=== PATIENT | female | born 1955 | race Caucasian/White ===

== ENCOUNTER 2019-09-23 10:54 | Emergency (ER) | payer MEDICARE, SELFPAY ==
[2019-09-23 11:33] VITALS: BP 163/118; PULSE 79; RESP 20; O2SAT 96; BMI 37.0
== END 2019-09-23 14:00 | disposition left against medical advice (07) ==
LOC: ER 14:12
PROVIDERS: Emergency Provider Emergency Medicine; Family Provider Family Medicine
DX: M54.6 Pain in thoracic spine (principal); R07.9 Chest pain, unspecified; F17.200 Nicotine dependence, unspecified, uncomplicated; Z53.21 Procedure and treatment not carried out due to patient leaving prior to being seen by health care provider
CPT/HCPCS: 99281

== ENCOUNTER 2020-06-29 09:58 | Inpatient (IN) | payer MEDICARE, SELFPAY ==
[2020-06-29] VITALS (9 sets, daily range): BP systolic 111–160; BP diastolic 65–82; PULSE 62–78; RESP 16–20; TEMP 36.7–37.2; O2SAT 90–98; BMI 34.5
--- NOTE | 2020-06-29 11:07 | CT_ITS ---
WS: [id number] CT ABDOMEN PELVIS TECHNIQUE: Contrast-enhanced CT of the abdomen and pelvis with coronal and sagittal reformatted image s. CLINICAL INFORMATION: abd pain COMPARISON: [id number] DLP: 1096.[address] scans at [facility] use at least one of these dose optimization techniques: automat ed exposure control; mA and/or kV adjustment per patient size (includes targeted exams where dose is matched to clinical indication); or iterative reconstruction. FINDINGS: Prior postoperative changes sigmoid resection with anastomosis. Colon is normal in appearance. Filled small bowel loops in the midabdomen consistent with small bowel obstruction. Dilated small bow el loops measure up to 3.5 CM. Dilated fluid-filled small bowel loops extend into the pelvis. Termina l ileum appears decompressed. No definite transition points. Normal liver. Prior cholecystectomy. Normal GE junction. Subsegmental atelectasis in the lung bases. Normal spleen. Normal pancreas. Adrenal glands are normal. No hydronephrosis. Normal caliber abdomina l aorta. Aortic calcification. No periaortic or retroperitoneal lymphadenopathy. No pelvic or inguinal lymphadenopathy. CT/CT abdomen pelvis w con* [id number] IMPRESSION: 1. Evidence of partial small bowel obstruction with dilated fluid-filled loops of small bowel in the midabdomen extending into the pelvis. No definite focal transition point. 2. Distal ileum and colon are normal caliber. 3. No free air. 4. Prior cholecystectomy. 5. No other significant findings. Notified Peter Mcgrath DO at 06/29/2020 12:09 PM.
--- NOTE | 2020-06-29 11:15 | ED_ITS ---
HPI - Abdominal Pain General: Chief Complaint: Abdominal Pain Stated Complaint: Stomach Pain Time Seen by Provider: 06/29/20 10:16 History of Present Illness: HPI narrative: 65-year-old female presents complaints of abdominal pain that she localized to the epigastric area and supraumbilical area began overnight. She has tried Mylanta Pepto-Bismol with only transient minimal relief. She has nausea but no vomiting or diarrhea she has had some loose stools denies any medic easy melena hematemesis or coffee- ground emesis denies any dysuria urgency or frequency. She is not noted any fever. Seemed to begin last night after she ate some vegetables and pork chops. MD elicited complaint: abdominal pain Pertinent past history: diverticulitis Onset (ago): hour(s) Pain Consistency: constant Location: Epigastric and Periumbilical Severity: moderate Quality: cramping Radiation: none Migration to: no migration Exacerbating factors: eating Relieving factors: nothing Associated Symptoms: Reports loose stools and poor appetite; Denies anorexia, belching, bloating, change in bowel habits, change in stool character, chills, coffee ground emesis, constipation, GI cramping, diarrhea, dyspepsia, dysuria, excessive flatus, fever(s), heartburn, hematochezia, hematuria, hematemesis, fecal incontinence, melena, nausea, syncope and vomiting Review of Systems Const: Denies: fever(s) or chills Card: Denies: syncope GI: Denies: nausea, vomiting, hematemesis, coffee ground emesis, heartburn, diarrhea, constipation, bloating, GI cramping, belching, excessive flatus, fecal incontinence, change in bowel habits, change in stool character, hematochezia or melena : Denies: dysuria or hematuria PFS ED PFSH: Medical History (Updated 06/29/20 @ 12:56 by Peter Mcgrath DO) COPD (chronic obstructive pulmonary disease) Diverticulitis Hyperlipidemia Hypertension Surgical History (Updated 06/29/20 @ 11:20 by Peter Mcgrath DO) H/O foot surgery H/O: hysterectomy S/P cholecystectomy S/P colon resection Social History (Updated 06/29/20 @ 11:20 by Peter Mcgrath DO) Smoking and tobacco status: current every day smoker Alcohol intake: never Physical Exam Const: COMMON NORMALS: no acute distress GENERAL APPEARANCE: cooperative and comfortable ORIENTATION/CONSCIOUSNESS: Yes awake, Yes oriented to person, Yes oriented to place and Yes oriented to time HENMT: COMMON NORMALS: normocephalic, atraumatic and hearing grossly normal bilaterally HEAD & SCALP: normocephalic and atraumatic Neck/C-Spine: COMMON NORMALS: no JVD Resp: COMMON NORMALS: normal respiratory effort, No retractions, No use of accessory muscles and clear to auscultation bilaterally AUSCULTATION: clear to auscultation bilaterally Cardio: COMMON NORMALS: no JVD, regular rate, regular rhythm and No murmurs present (Cardio) RATE: regular rate RHYTHM: regular rhythm GI: COMMON NORMALS: Soft to palpation and No hepatosplenomegaly present AUSCULTATION: Yes normoactive bowel sounds PALPATION: Yes Soft to palpation, No Tenderness to palpation present (GI), No Guarding due to palpation present (GI) and Yes No hepatosplenomegaly present Extremity: COMMON NORMALS: normal to inspection, capillary refill normal, no clubbing, cyanosis or edema, no calf tenderness and no pedal edema Neuro: SENSORIUM/ORIENTATION: Yes oriented to person, Yes oriented to place and Yes oriented to time Skin: COMMON NORMALS: no rashes or lesions noted GENERAL SKIN EXAM: no rashes or lesions noted Course Vital Signs: Vital signs: Vital Signs Temperature 98.1 F 06/29/20 10:06 Respiratory Rate 16 06/29/20 10:06 Blood Pressure 150/81 06/29/20 10:06 Pulse Oximetry 96 06/29/20 10:06 MDM - Abdominal Pain MDM Narrative: Medical decision making narrative: Partial small bowel obstruction. Patient will be admitted n.p.o. IV fluids Dr. Sutherland to admit as attending hospitalist for consultation for medical management. Discussed with patient. Lab Data: Labs: Lab Results 06/29/20 06/29/20 06/29/20 Range/Units 11:06 11:06 11:06 WBC 12.0 H (4.0-10.0) 10^3/ uL RBC 4.77 (4.1-5.3) 10^6/u L Hgb 15.1 (11.5-15.3) g/dL Hct 46.2 (37.0-47.0) % MCV 96.9 (81-99) fL MCH 31.7 (28.0-34.0) pg MCHC 32.7 (30.0-36.0) g/dL RDW 13.7 (12.1-15.1) % Plt Count 236 (130-400) 10^3/c mm MPV 10.0 (7.4-10.4) fL Neut % (Auto) 84.2 % Lymph % (Auto) 11.2 % [place] % (Auto) 3.9 % Eos % (Auto) 0.1 % Baso % (Auto) 0.2 % Neut # (Auto) 10.14 H (1.8-7.7) 10^3/u L Lymph # (Auto) 1.4 (0.8-4.8) 10^3/u L [place] # (Auto) 0.5 (0.2-0.9) 10^3/u L Eos # (Auto) 0.0 (0.0-0.8) 10^3/u L Baso # (Auto) 0.0 (0.0-0.1) 10^3/u L Nucleated RBC % (a uto) 0 % Nucleated RBCs # 0.0 /100WBC Sodium 137 (136-145) mmol/L Potassium 4.2 (3.5-5.1) mmol/L Chloride 100 (98-107) mmol/L Carbon Dioxide 23 (22-29) mmol/L Anion Gap 18.2 (5-19) BUN 20 (8-23) mg/dL Creatinine 0.7 (0.5-0.9) mg/dL GFR Calculation 84.2 L (90-130) mL/min Glucose 151 H (65-115) mg/dL Calculated Osmolal ity 290 (285-295) mOsm/k g Lactic Acid 2.8 H (0.5-2.2) mmol/L Calcium 9.4 (8.5-10.5) mg/dL Total Bilirubin 0.2 (0.15-1.2) mg/dL AST 15 (0-32) U/L ALT 12 (0-33) U/L Alkaline Phosphata se 81 (35-105) IU/L Total Protein 6.9 (6.6-8.7) g/dL Albumin 4.4 (3.5-5.2) g/dL Globulin 2.5 (1.3-4.6) g/dL Lipase 20 (13-60) U/L Urine Color (Yellow) Urine Appearance (CLEAR) Urine pH (5-7) Ur Specific Gravit y (1.005-1.030) Urine Protein (Negative) Urine Glucose (UA) (Normal) Urine Ketones (Negative) Urine Blood (Negative) Urine Nitrate (Negative) Urine Bilirubin (Negative) Urine Urobilinogen (Negative) mg/dL Ur Leukocyte Melissa ase (Negative) Urine RBC (0-2) /hpf Urine WBC (0-5) /hpf Ur Squamous Epith Cells (0-5) /hpf Amorphous Sediment Urine Bacteria (NONE) /hpf Urine Mucus /hpf 06/29/20 Range/Units 11:06 WBC (4.0-10.0) 10^3/ uL RBC (4.1-5.3) 10^6/u L Hgb (11.5-15.3) g/dL Hct (37.0-47.0) % MCV (81-99) fL MCH (28.0-34.0) pg MCHC (30.0-36.0) g/dL RDW (12.1-15.1) % Plt Count (130-400) 10^3/c mm MPV (7.4-10.4) fL Neut % (Auto) % Lymph % (Auto) % [place] % (Auto) % Eos % (Auto) % Baso % (Auto) % Neut # (Auto) (1.8-7.7) 10^3/u L Lymph # (Auto) (0.8-4.8) 10^3/u L [place] # (Auto) (0.2-0.9) 10^3/u L Eos # (Auto) (0.0-0.8) 10^3/u L Baso # (Auto) (0.0-0.1) 10^3/u L Nucleated RBC % (a uto) % Nucleated RBCs # /100WBC Sodium (136-145) mmol/L Potassium (3.5-5.1) mmol/L Chloride (98-107) mmol/L Carbon Dioxide (22-29) mmol/L Anion Gap (5-19) BUN (8-23) mg/dL Creatinine (0.5-0.9) mg/dL GFR Calculation (90-130) mL/min Glucose (65-115) mg/dL Calculated Osmolal ity (285-295) mOsm/k g Lactic Acid (0.5-2.2) mmol/L Calcium (8.5-10.5) mg/dL Total Bilirubin (0.15-1.2) mg/dL AST (0-32) U/L ALT (0-33) U/L Alkaline Phosphata se (35-105) IU/L Total Protein (6.6-8.7) g/dL Albumin (3.5-5.2) g/dL Globulin (1.3-4.6) g/dL Lipase (13-60) U/L Urine Color Yellow (Yellow) Urine Appearance Clear (CLEAR) Urine pH 5 (5-7) Ur Specific Gravit y 1.025 (1.005-1.030) Urine Protein Neg (Negative) Urine Glucose (UA) Norm (Normal) Urine Ketones Negative (Negative) Urine Blood 2+ H (Negative) Urine Nitrate Negative (Negative) Urine Bilirubin 1+ H (Negative) Urine Urobilinogen 1 H (Negative) mg/dL Ur Leukocyte Melissa ase Negative (Negative) Urine RBC 0-4 H (0-2) /hpf Urine WBC None (0-5) /hpf Ur Squamous Epith Cells Rare (0-5) /hpf Amorphous Sediment Not Reportable Urine Bacteria Trace (NONE) /hpf Urine Mucus 1+ /hpf Discharge Plan Discharge Patient Disposition: Admitted As Inpatient Clinical Impression: Small bowel obstruction, COPD (chronic obstructive pulmonary disease), Hypertension, Hyperlipidemia Condition: Stable Coding Level of Care Code ED Apprentice Carpenter for Maur[facility] Fwd Exam Comprehensive
[2020-06-29 11:23] LABS: Basophils % 0.2 %; Eosinophils % 0.1 %; Hematocrit 46.2 % (37.0-47.0); Hemoglobin 15.1 g/dL (11.5-15.3); Lymphocytes # 1.4 10^3/uL (0.8-4.8); Lymphocytes % 11.2 %; Mean Corpuscular HGB Conc 32.7 g/dL (30.0-36.0); Mean Corpuscular Hemoglobin 31.7 pg (28.0-34.0); Mean Corpuscular Volume 96.9 fL (81-99); Monocytes # 0.5 10^3/uL (0.2-0.9); Monocytes % 3.9 %; Neutrophils # 10.14 10^3/uL (1.8-7.7); Neutrophils % 84.2 %; Nucleated Red Blood Cells % 0 %; Platelet Count 236 10^3/cmm (130-400); Red Blood Count 4.77 10^6/uL (4.1-5.3); Red Cell Distribution Width 13.7 % (12.1-15.1)
[2020-06-29 11:40] LABS: Alanine Aminotransferase 12 U/L (0-33); Albumin Level 4.4 g/dL (3.5-5.2); Alkaline Phosphatase 81 IU/L (35-105); Anion Gap 18.2 (5-19); Aspartate Amino Transferase 15 U/L (0-32); Blood Urea Nitrogen 20 mg/dL (8-23); Calcium 9.4 mg/dL (8.5-10.5); Carbon Dioxide 23 mmol/L (22-29); Chloride 100 mmol/L (98-107); Globulin 2.5 g/dL (1.3-4.6); Glomerular Filtration Rate 84.2 mL/min (90-130); Glucose 151 mg/dL (65-115); Lipase 20 U/L (13-60); Osmolality Calculated 290 mOsm/kg (285-295); Potassium 4.2 mmol/L (3.5-5.1); Sodium 137 mmol/L (136-145); Total Bilirubin 0.2 mg/dL (0.15-1.2); Total Protein 6.9 g/dL (6.6-8.7)
[2020-06-29 11:41] LABS: Lactic Sepsis W/Reflex 2.8 mmol/L (0.5-2.2)
[2020-06-29] MEDS: iohexol 300 mg/mL 100 mL Btl IV (11:56)
[2020-06-29] MEDS: sodium chloride 0.9% 1,000 ML 999 ML IV (12:03)
[2020-06-29] MEDS: ondansetron 2 mg/ML SDV 2 mL 4 MG IVP (12:04)
[2020-06-29 12:25] LABS: Add Urine Microscopic? YES; Bilirubin Urine 1+ (Negative); Blood Urine 2+ (Negative); Glucose Urine UA Norm (Normal); Ketones Urine Negative (Negative); Leukocyte Esterase Urine Negative (Negative); Nitrate Urine Negative (Negative); Protein Urine Neg (Negative); Specific Gravity, Urine 1.025 (1.005-1.030); Urine Appearance Clear (CLEAR); Urine Color Yellow (Yellow); Urobilinogen Urine 1 mg/dL (Negative); pH Urine 5 (5-7)
[2020-06-29 12:26] LABS: Add Urine Culture? No; Bacteria Urine TRACE /hpf; Mucus Urine 1+ /hpf; RBC Urine 0-4 /hpf (0-2); Squamous Epithelial Cell Urine RARE /hpf (0-5)
[2020-06-29 13:02] LABS: Reflex Lactate Order REFLEX LACTIC ORDERD
--- NOTE | 2020-06-29 13:26 | P.HP_ITS ---
Providers/Chief Complaint Primary Care Provider: Fabricio Murillo Chief Complaint: Stomach Pain History of Present Illness Ronit Winn is a 65 year old female with a past medical history of COPD, current smoker, hypertension, history of bowel resection for diverticulitis, with subsequent revision, history of colonoscopy in 2013, cholecystectomy who presents [facility] due to abdominal pain. Patient tells me that she is here because her abdomen hurts her, started last night, mildly nauseous, no vomiting, had a bowel movement this morning, usually has a bowel movement a day, cannot keep down liquids, was able to have dinner last night, no history of food poisoning, no history of atrial fibrillation, no history of bloody or black stools. Patient tells me that actually her symptoms began about a week ago, with some abdominal pain with some constipation, she took a laxative this winter abdominal pain and constipation significantly improved back to baseline. She tells me that the pain that she is experiencing right now is very similar to when she had a bowel obstruction after her original bowel resection for divert iculitis for which she required a revision in [facility] in [facility]. Currently having abdominal pain, was able to keep down Sprite, last bowel movement was early this morning. No fevers, no chills, no exposure to COVID-19 Review of Systems Const: Denies: fever(s), chills, fatigue or malaise Eyes: Denies: change in vision or blurry vision ENMT: Denies: nasal congestion Card: Denies: chest pain or palpitations Resp: Denies: dyspnea, productive cough, non-productive cough or wheezing GI: Reports: abdominal pain and nausea; Denies: vomiting, hematemesis, diarrhea, constipation, hematochezia or melena : Denies: flank pain, dysuria or urinary frequency Musc: Denies: neck pain or back pain Skin/Breast: Denies: rash Neuro: Denies: headache(s), dizziness or vertigo Psych: Denies: anxiety or depression Endo: Denies: polyuria or polydipsia Medications/Allergies Home Medications Medication Instructions Recorded Confirmed Last Taken Type albuterol sulfate 1 puff INHALATION QID PRN 06/29/20 06/29/20 Unknown History cholecalciferol (vitamin D3) 1,250 mcg PO Q7D 06/29/20 06/29/20 06/22/20 History lisinopril 10 mg PO DAILY@09 06/29/20 06/29/20 06/29/20 History mirtazapine 45 mg PO BEDTIME@06/29/20 06/29/20 06/28/20 History umeclidinium-vilanterol [Anoro 1 ea INHALATION DAILY@06/29/20 06/29/20 06/28/20 History Ellipta] Allergies Allergy/AdvReac Type Severity Reaction Status Date / Time adhesive tape Allergy ALGY-Rash Verified 06/29/20 10:14 amoxicillin Allergy ALGY-Rash Verified 06/29/20 10:14 fentanyl [From Duragesic] Allergy Unknown Verified 06/29/20 10:14 hydrocodone Allergy ADR-Itching Verified 06/29/20 10:14 PFSH Acute PFSH: Medical History (Updated 06/29/20 @ 13:32 by Km Umana MD) COPD (chronic obstructive pulmonary disease) Diverticulitis Hyperlipidemia Hypertension Surgical History (Updated 06/29/20 @ 11:20 by Peter Mcgrath DO) H/O foot surgery H/O: hysterectomy S/P cholecystectomy S/P colon resection Family History (Updated 06/29/20 @ 13:31 by Km Umana MD) Father CAD (coronary artery disease) Cancer Lung disease Lung cancer Mother Cancer Cervical cancer Hypertension Social History (Updated 06/29/20 @ 11:20 by Peter Mcgrath DO) Smoking and tobacco status: current every day smoker Alcohol intake: never Vitals/I&O/Wt Last Vital Signs Temp 98.1 F 06/29/20 10:06 Resp 16 06/29/20 10:06 BP 150/81 06/29/20 10:06 Pulse Ox 96 06/29/20 10:06 Weight last 48 hrs Weight 83.007 kg Physical Exam Const: COMMON NORMALS: no acute distress and patient oriented x3 GENERAL APPEARANCE: cooperative and comfortable HENMT: COMMON NORMALS: normocephalic HEAD & SCALP: normocephalic Eye: COMMON NORMALS: Equal, round and reactive pupils present and EOMs intact bilaterally GENERAL EYE: appearance normal, both eyes and all related structures PUPIL: Yes Equal, round and reactive pupils present Neck/C-Spine: COMMON NORMALS: full ROM, no lymphadenopathy, no JVD and Thyroid normal THYROID: Thyroid normal Lymph: LYMPHATIC: no lymphadenopathy noted Resp: COMMON NORMALS: normal respiratory effort, No retractions, No use of accessory muscles and clear to auscultation bilaterally AUSCULTATION: clear to auscultation bilaterally Cardio: COMMON NORMALS: no JVD, regular rate, regular rhythm, S1 normal heart sound present, S2 normal heart sound present, No gallops present (Cardio), No clicks present (Cardio) and No murmurs present (Cardio) RATE: regular rate RHYTHM: regular rhythm HEART SOUNDS: S1 normal heart sound present and S2 normal heart sound present GI: COMMON NORMALS: Soft to palpation, non-tender and No hepatosplenomegaly present INSPECTION: Yes normal to inspection and Yes abdominal distension PALPATION: Yes Soft to palpation, No Firmness to palpation present (GI), Yes Tenderness to palpation present (GI) Details: LLQ, RLQ, LUQ and RUQ, No Guarding due to palpation present (GI), No Rigid due to palpation and No Rebound tenderness present OTHER: Vertical incision scar Has a incisional hernia present Extremity: COMMON NORMALS: normal to inspection, full ROM and no pedal edema Neuro: COMMON NORMALS: patient oriented x3, CN's II-XII intact bilaterally, moves all extremities and no focal motor deficits Psych: COMMON NORMALS: mental status grossly normal, Normal thought process present and cooperative THOUGHT PROCESS: Normal thought process present Data : 06/29/20 11:06 06/29/20 11:06 A&P Assessment and plan (1) Partial small bowel obstruction: -Likely secondary to adhesions secondary to multiple abdominal surgeries -Surgery on consult, appreciate recommendations -We will keep n.p.o. -Morphine for pain -D5 half-normal with 20 KCl at 100 cc an hour -Encourage early ambulation -Heparin for DVT prophylaxis -Full code Status: Acute (2) COPD (chronic obstructive pulmonary disease): Not in exacerbation, continue home inhalers Status: Acute (3) Hyperlipidemia: Status: Acute (4) Hypertension: Continue home medications, added Norvasc Status: Acute Attestations Medical Necessity Statement*: Patient requires hospitalization inpatient, gr eater than 2 midnights for partial small bowel obstruction Coding Level of Care Code Acute Bow String Maker for [facility] Fwd Diagnoses Partial small bowel obstruction K56.600 COPD (chronic obstructive pulmonary disease) J44.9 Hyperlipidemia E78.5 Hypertension I10
[2020-06-29] MEDS: morphine 4 mg/mL SDV 1 mL 2 MG IVP ×2 (13:40→17:13)
--- NOTE | 2020-06-29 14:06 | PM.HP ---
Providers/Chief Complaint Admitting Physician: Chun Sutherland MD Primary Care Provider: Fabricio Murillo Chief Complaint: Stomach Pain History of Present Illness Ms.Mary Meredith Winn is a 65 year old female with history of COPD and home O2 dependent at nighttime 2 L of oxygen per nasal cannula. And she continues to smoke. Presents to the emergency department with worsening abdominal pain mostly in the center of the abdomen that started yesterday evening. Patient reports that she has been having bowel movements and passing gas but she is well known to have history of constipation. And she has been on MiraLAX and switch to prune juice. She denies any history of fevers chills or vomiting yet she does report nausea. Upon further work-up in the emergency department lab work showed leukocytosis and a lactic acid of 2.[address] scan of the abdomen and pelvis that showed partial bowel obstruction without definite transition point. Patient reports to me that she had previous laparotomy for bowel resection likely complicated sigmoid colon diverticulitis done back in 2013 and she had a history of cholecystectomy and hysterectomy. CT scan of the abdomen pelvis showed Prior postoperative changes sigmoid resection with anastomosis. Colon is normal in appearance. Filled small bowel loops in the midabdomen consistent with small bowel obstruction. Dilated small bowel loops measure up to 3.5 CM. Dilated fluid-filled small bowel loops extend into the pelvis. Terminal ileum appears decompressed. No definite transition points. Normal liver. Prior cholecystectomy. Normal GE junction. Subsegmental atelectasis in the lung bases. Normal spleen. Normal pancreas. Adrenal glands are normal. No hydronephrosis. Normal caliber abdominal aorta. Aortic calcification. No periaortic or retroperitoneal lymphadenopathy. No pelvic or inguinal lymphadenopathy. CT/CT abdomen pelvis w con* [id number] IMPRESSION: 1. Evidence of partial small bowel obstruction with dilated fluid-filled loops of small bowel in the midabdomen extending into the pelvis. No definite focal transition point. 2. Distal ileum and colon are normal caliber. 3. No free air. 4. Prior cholecystectomy. 5. No other significant findings. General surgery was consulted for further evaluation potential management. Patient was seen in the emergency department Review of Systems General: Reports: 10 or more systems reviewed and unremarkable except in HPI and below Medications/Allergies Home Medications Medication Instructions Recorded Confirmed Last Taken Type albuterol sulfate 1 puff INHALATION QID PRN 06/29/20 06/29/20 Unknown History cholecalciferol (vitamin D3) 1,250 mcg PO Q7D 06/29/20 06/29/20 06/22/20 History lisinopril 10 mg PO DAILY@09 06/29/20 06/29/20 06/29/20 History mirtazapine 45 mg PO BEDTIME@06/29/20 06/29/20 06/28/20 History umeclidinium-vilanterol [Anoro 1 ea INHALATION DAILY@06/29/20 06/29/20 06/28/20 History Ellipta] Allergies Allergy/AdvReac Type Severity Reaction Status Date / Time adhesive tape Allergy ALGY-Rash Verified 06/29/20 14:13 amoxicillin Allergy ALGY-Rash Verified 06/29/20 14:13 fentanyl [From Duragesic] Allergy Unknown Verified 06/29/20 14:13 hydrocodone Allergy ADR-Itching Verified 06/29/20 14:13 PFSH Acute PFSH: Medical History COPD (chronic obstructive pulmonary disease) Diverticulitis Hyperlipidemia Hypertension Surgical History H/O foot surgery H/O: hysterectomy S/P cholecystectomy S/P colon resection Family History Father CAD (coronary artery disease) Cancer Lung disease Lung cancer Mother Cancer Cervical cancer Hypertension Social History Smoking and tobacco status: current every day smoker Alcohol intake: never Vitals/I&O/Wt Last Vital Signs Temp 98.1 F 06/29/20 10:06 Pulse 75 06/29/20 13:41 Resp 16 06/29/20 13:41 BP 143/82 06/29/20 13:41 Pulse Ox 97 06/29/20 13:41 Weight last 48 hrs Weight 183 lb Physical Exam Narrative: EXAM NARRATIVE: Patient is conscious alert oriented X3 BMI 34.6 Head and neck examination PERRLA no masses no cervical lymphadenopathy no jaundice Cardiac examination audible S1-S2 no murmurs no gallops no arrhythmias Chest is clear bilateral,abscence of Rhonchi or wheezes,no surgical emphysema Abdomen nontender mildly distended soft no organomegaly guarding or rigidity/no signs of peritonitis/midline scar Obese Extremities no cyanosis no clubbing no edema Data : 06/29/20 11:06 06/29/20 11:06 A&P Assessment and plan (1) Partial small bowel obstruction: After thorough history physical examination reviewing the chart and images with my personal interpretation, I do appreciate stool content in the small bowel likely due to chronic constipation. A potential underlying adhesive etiology cannot be ruled out due to patient's multiple surgical interventions yet I do not appreciate a transition point from surgical standpoint reviewed the plan of care: 1-intravenous hydration 2-n.p.o. for now except ice chips patient starts vomiting will insert NG tube 3-repeated physical examination 4-strict I's and O 5-we will defer COPD management to hospitalist service 6-Milk and molaces 7-repeat lab work in the morning 8-assurance and education All questions have been answered and all concerns have been addressed to patient's satisfaction. Status: Acute Attestations Medical Necessity Statement*: Patient requiring observation and repeated physical examination from surgical standpoint of view Time Spent in Patient Care: 16 - 35 minutes (>than 50% of time spent in counselling and/or direct pt care on unit). Coding Level of Care Code Acute Licensing Representative for Ron [facility] Diagnoses Partial small bowel obstruction K56.600
--- NOTE | 2020-06-29 14:58 | PC.NURSE ---
rcvd verbal order from Dr Sutherland to discontinue D5 1/2 with 20K and start NS 100ml/hr
--- NOTE | 2020-06-29 15:35 | PC.NURSE ---
Patient given milk and molasses enema at this time. Tolerated well.
[2020-06-29 15:36] LABS: Thyroid Stimulating Hormone 1.48 uIU/mL (0.27-4.20)
[2020-06-29 16:19] LABS: Estmated Average Glucose 111; Hemoglobin A1C 5.5 % (4.0-6.0)
[2020-06-29] MEDS: heparin 5,000 unit/mL INJ 1 mL 5000 UNIT SUBCUT (16:22)
[2020-06-29] MEDS: famotidine 20 mg/2 mL INJ IVP (16:22)
[2020-06-29] MEDS: sodium chloride 0.9% 1,000 ML 100 ML IV (16:23)
[2020-06-29] MEDS: ergocalciferol (vitamin D2) 50,000 Unit Capsule 50000 UNIT PO (17:14)
[2020-06-29] MEDS: mirtazapine 15 mg Tablet 45 MG PO (21:24)
[2020-06-30] MEDS: sodium chloride 0.9% 1,000 ML 100 ML IV (02:14)
[2020-06-30 03:27] VITALS: BP 121/64; PULSE 58; RESP 18; TEMP 36.9; O2SAT 90
[2020-06-30] MEDS: famotidine 20 mg/2 mL INJ IVP (03:57)
[2020-06-30] MEDS: heparin 5,000 unit/mL INJ 1 mL 5000 UNIT SUBCUT (03:57)
[2020-06-30 04:21] LABS: Basophils % 0.1 %; Eosinophils # 0.1 10^3/uL (0.0-0.8); Eosinophils % 1.4 %; Hematocrit 41.1 % (37.0-47.0); Hemoglobin 12.9 g/dL (11.5-15.3); Lymphocytes # 2.2 10^3/uL (0.8-4.8); Lymphocytes % 30.2 %; Mean Corpuscular HGB Conc 31.4 g/dL (30.0-36.0); Mean Corpuscular Hemoglobin 31.6 pg (28.0-34.0); Mean Corpuscular Volume 100.7 fL (81-99); Mean Platelet Volume 9.6 fL (7.4-10.4); Monocytes # 0.8 10^3/uL (0.2-0.9); Monocytes % 10.4 %; Neutrophils # 4.19 10^3/uL (1.8-7.7); Neutrophils % 57.6 %; Nucleated Red Blood Cells % 0 %; Platelet Count 196 10^3/cmm (130-400); Red Blood Count 4.08 10^6/uL (4.1-5.3); Red Cell Distribution Width 14.1 % (12.1-15.1); White Blood Count 7.3 10^3/uL (4.0-10.0)
[2020-06-30 04:40] LABS: Magnesium 2.4 mg/dL (1.7-2.3); Phosphorus 3.5 mg/dL (2.5-4.5)
[2020-06-30 04:43] LABS: Alanine Aminotransferase 9 U/L (0-33); Albumin Level 3.2 g/dL (3.5-5.2); Alkaline Phosphatase 65 IU/L (35-105); Anion Gap 9.1 (5-19); Aspartate Amino Transferase 15 U/L (0-32); Blood Urea Nitrogen 19 mg/dL (8-23); Calcium 8.3 mg/dL (8.5-10.5); Carbon Dioxide 25 mmol/L (22-29); Chloride 111 mmol/L (98-107); Globulin 2.6 g/dL (1.3-4.6); Glomerular Filtration Rate 72.2 mL/min (90-130); Glucose 107 mg/dL (65-115); Osmolality Calculated 295 mOsm/kg (285-295); Potassium 4.1 mmol/L (3.5-5.1); Sodium 141 mmol/L (136-145); Total Bilirubin 0.3 mg/dL (0.15-1.2); Total Protein 5.8 g/dL (6.6-8.7)
--- NOTE | 2020-06-30 06:07 | P.PN_ITS ---
Subjective Subjective: Interval history: Patient overall is doing well and had 2 large bowel movements, and she is passing gas. WBC count and lactic acid normalized after appropriate IV fluid resuscitation and patient is having good urine output. On morning rounds denies any nausea vomiting fevers or chills Medications: Reviewed: Yes Vitals/I&O/Wt Last Vital Signs Temp 98.4 F 06/30/20 03:27 Pulse 58 L 06/30/20 03:27 Resp 18 06/30/20 03:27 BP 121/64 06/30/20 03:27 Pulse Ox 90 06/30/20 03:27 06/29/20 06/29/20 06/30/20 14:59 22:59 06:59 Intake Total 985 / 985 Output Total 400 / 400 Balance 585 / 585 Weight last 48 hrs Weight 183 lb Physical Exam Narrative: EXAM NARRATIVE: Patient is conscious alert oriented X3 BMI 35 Head and neck examination PERRLA no masses no cervical lymphadenopathy no jaundice Cardiac examination audible S1-S2 no murmurs no gallops no arrhythmias Chest is clear bilateral,abscence of Rhonchi or wheezes,no surgical emphysema Abdomen nontender except slightly towards the left lower quadrant otherwise nondistended soft no organomegaly guarding or rigidity/no signs of peritonitis Data : 06/30/20 04:11 06/30/20 04:11 A&P Assessment and plan (1) Partial small bowel obstruction: From surgical standpoint of view we will start the patient on clear liquid diet if this is tolerated well can be discharged home on appropriate bowel regimen and can advance diet as tolerated subsequently. Appropriate hydration. Follow-up at surgery office as needed Emphasis on cessation of smoking Obesity management the form of low calorie diet All questions have been answered and all concerns have been addressed to patient's satisfaction. Status: Acute Attestations Medical Necessity Statement*: Requiring hospitalization for medical and catherine rgical care Time Spent in Patient Care: (>than 50% of time spent in counselling and/or direct pt care on unit) . Coding Level of Care Code Acute Project Development Director for Ron Fwd Diagnoses Partial small bowel obstruction K56.600
[2020-06-30 08:00] VITALS: BP 143/80; PULSE 59; RESP 17; TEMP 36.7; O2SAT 93
[2020-06-30] MEDS: lisinopril 10 mg Tablet PO (08:22)
--- NOTE | 2020-06-30 09:03 | PC.CHAP ---
Pastoral Care Encounter/Spiritual Assessment Type of Contact [] Declined creche attendant visit [] Patient/Family/Request visit [] Outpatient visit [] Follow-up visit [] Physician referral [] Code/Alert [] Routine visit [] Staff referral [] Actively dying [] Patient sleeping [] Family support [] [] Out of room [] Palliative care [] [] Receiving care in room [] Pre-surgical visit [] Trauma [] Long length of stay [] ICU visit [] Other: Relational/Emotional Strength [] Patient feels connected with others/family/visitors/staff [] Distress [] Loneliness/isolation [] Abandonment Spirituality of Patient [] Person of Daniela [] Attends Holiness of their Daniela [] Believes in Prayer [] Reads Bible or Buddhism materials [] There are Spiritual issues to be addressed Rn Homecare Interventions [x] Prayer [] Active listening [] Non-anxious presence [] Spiritual/emotional support [] Crisis/trauma care [] Spiritual counseling [] Bereavement support [] Provided bereavement packet [] Provided Bible/devotional materials [] Provided toy/stuffed animal, coloring book to patient or family member [] Provided Communion [] Anointing/[place] [] Salvation [] Completed spiritual assessment [] Other: Impact on Illness or Injury [] Angry [] Fearful [] Anxious [] Often cries [] Exhaustion [] Unable to work [] Unable to attend scientologist [] Unable to walk/stand [] Unable to read [] Unable to drive [] Unable to eat/drink [] Unable to sleep [] Unable to be with family [] Patient intubated [] Other: Summary Time spent with patient 10 min
--- NOTE | 2020-06-30 09:14 | P.DS_ITS ---
Discharge Providers Date of Admission: 06/29/20 12:35 Date of Discharge: June 30, 2020 Attending Provider at Admission: Chun Sutherland MD Attending Provider at Discharge: Km Umana MD Primary Care Provider: Fabricio Murillo Diagnoses at Discharge Discharge Diagnosis (1) Partial small bowel obstruction: Status: Acute Reason for Visit Reason for Visit: Stomach Pain Hospital Course Hospital Course Ronit Winn is a 65 year old female with a past medical history of COPD,uses 2L at night, current smoker, hypertension, history of bowel resection for diverticulitis, with subsequent revision, history of colonoscopy in 2013, cholecystectomy who presents [facility] due to abdominal pain. Patient was admitted to [facility] for partial small bowel obstruction secondary to adhesions from previous surgeries, she was admitted to the general medical floors, kept n.p.o., received IV fluids; over her clinical course her abdominal pain improved, patient had bowel movements, passing flatus, no nausea, no vomiting, tolerating a clear liquid diet well. Patient will be discharged on instructions to slowly advance her diet, continue bowel regimen, appropriate oral hydration, follow-up with general surgery in a month if needed. Physical Exam Const: COMMON NORMALS: no acute distress and patient oriented x3 HENMT: COMMON NORMALS: normocephalic HEAD & SCALP: normocephalic Neck/C-Spine: COMMON NORMALS: no JVD Resp: COMMON NORMALS: normal respiratory effort, No retractions, No use of accessory muscles and clear to auscultation bilaterally AUSCULTATION: clear to auscultation bilaterally Cardio: COMMON NORMALS: no JVD, regular rate, regular rhythm, S1 normal heart sound present and S2 normal heart sound present RATE: regular rate RHYTHM: regular rhythm HEART SOUNDS: S1 normal heart sound present and S2 normal heart sound present GI: COMMON NORMALS: Normal to inspection, nondistended, normoactive bowel sounds present, Soft to palpation, non-tender, no masses and no bruits PALPATION: Yes Soft to palpation and Yes Tenderness to palpation present (GI) (periumbilical) Extremity: COMMON NORMALS: capillary refill normal, no clubbing, cyanosis or edema, no calf tenderness and no pedal edema Neuro: COMMON NORMALS: patient oriented x3 Psych: COMMON NORMALS: mental status grossly normal Discharge Data Data Completed and Pending: Completed Studies During Hospitalization Category Date Time Status CT abdomen pelvis w con* [id number] Stat Cat Scan 06/29/20 11:07 Completed Pending at discharge Category Date Time Status Lactate (Lactic A mariama level) AM LABS Lab 07/01/20 04:00 Ordered Lactate (Lactic A mariama level) AM LABS Lab 07/02/20 04:00 Ordered Magnesium AM LABS Lab 07/01/20 04:00 Ordered Magnesium AM LABS Lab 07/02/20 04:00 Ordered Phosphorus AM LAB S Lab 07/01/20 04:00 Ordered Phosphorus AM LAB S Lab 07/02/20 04:00 Ordered Labs from last 24 hours 06/30/20 06/30/20 06/30/20 04:11 04:11 04:11 WBC RBC Hgb Hct MCV MCH MCHC RDW Plt Count MPV Neut % (Auto) Lymph % (Auto) [place] % (Auto) Eos % (Auto) Baso % (Auto) Neut # (Auto) Lymph # (Auto) [place] # (Auto) Eos # (Auto) Baso # (Auto) Nucleated RBC % (a uto) Nucleated RBCs # Sodium 141 Potassium 4.1 Chloride 111 H Carbon Dioxide 25 Anion Gap 9.1 BUN 19 Creatinine 0.8 GFR Calculation 72.2 L Glucose 107 Estimat Average Gl ucose Hemoglobin A1c Calculated Osmolal ity 295 Lactic Acid Lactate 1.0 Calcium 8.3 L Phosphorus 3.5 Magnesium 2.4 H Total Bilirubin 0.3 AST 15 ALT 9 Alkaline Phosphata se 65 Total Protein 5.8 L Albumin 3.2 L Globulin 2.6 Lipase TSH Urine Color Urine Appearance Urine pH Ur Specific Gravit y Urine Protein Urine Glucose (UA) Urine Ketones Urine Blood Urine Nitrate Urine Bilirubin Urine Urobilinogen Ur Leukocyte Melissa ase Urine RBC Urine WBC Ur Squamous Epith Cells Amorphous Sediment Urine Bacteria Urine Mucus 06/30/20 06/29/20 06/29/20 04:11 11:06 11:06 WBC 7.3 RBC 4.08 L Hgb 12.9 Hct 41.1 MCV 100.7 H MCH 31.6 MCHC 31.4 RDW 14.1 Plt Count 196 MPV 9.6 Neut % (Auto) 57.6 Lymph % (Auto) 30.2 [place] % (Auto) 10.4 Eos % (Auto) 1.4 Baso % (Auto) 0.1 Neut # (Auto) 4.19 Lymph # (Auto) 2.2 [place] # (Auto) 0.8 Eos # (Auto) 0.1 Baso # (Auto) 0.0 Nucleated RBC % (a uto) 0 Nucleated RBCs # 0.0 Sodium Potassium Chloride Carbon Dioxide Anion Gap BUN Creatinine GFR Calculation Glucose Estimat Average Gl ucose 111 Hemoglobin A1c 5.5 Calculated Osmolal ity Lactic Acid Lactate Calcium Phosphorus Magnesium Total Bilirubin AST ALT Alkaline Phosphata se Total Protein Albumin Globulin Lipase TSH 1.48 Urine Color Urine Appearance Urine pH Ur Specific Gravit y Urine Protein Urine Glucose (UA) Urine Ketones Urine Blood Urine Nitrate Urine Bilirubin Urine Urobilinogen Ur Leukocyte Melissa ase Urine RBC Urine WBC Ur Squamous Epith Cells Amorphous Sediment Urine Bacteria Urine Mucus 06/29/20 06/29/20 06/29/20 11:06 11:06 11:06 WBC RBC Hgb Hct MCV MCH MCHC RDW Plt Count MPV Neut % (Auto) Lymph % (Auto) [place] % (Auto) Eos % (Auto) Baso % (Auto) Neut # (Auto) Lymph # (Auto) [place] # (Auto) Eos # (Auto) Baso # (Auto) Nucleated RBC % (a uto) Nucleated RBCs # Sodium 137 Potassium 4.2 Chloride 100 Carbon Dioxide 23 Anion Gap 18.2 BUN 20 Creatinine 0.7 GFR Calculation 84.2 L Glucose 151 H Estimat Average Gl ucose Hemoglobin A1c Calculated Osmolal ity 290 Lactic Acid 2.8 H Lactate Calcium 9.4 Phosphorus Magnesium Total Bilirubin 0.2 AST 15 ALT 12 Alkaline Phosphata se 81 Total Protein 6.9 Albumin 4.4 Globulin 2.5 Lipase 20 TSH Urine Color Yellow Urine Appearance Clear Urine pH 5 Ur Specific Gravit y 1.025 Urine Protein Neg Urine Glucose (UA) Norm Urine Ketones Negative Urine Blood 2+ H Urine Nitrate Negative Urine Bilirubin 1+ H Urine Urobilinogen 1 H Ur Leukocyte Melissa ase Negative Urine RBC 0-4 H Urine WBC None Ur Squamous Epith Cells Rare Amorphous Sediment Not Reportable Urine Bacteria Trace Urine Mucus 1+ 06/29/20 11:06 WBC 12.0 H RBC 4.77 Hgb 15.1 Hct 46.2 MCV 96.9 MCH 31.7 MCHC 32.7 RDW 13.7 Plt Count 236 MPV 10.0 Neut % (Auto) 84.2 Lymph % (Auto) 11.2 [place] % (Auto) 3.9 Eos % (Auto) 0.1 Baso % (Auto) 0.2 Neut # (Auto) 10.14 H Lymph # (Auto) 1.4 [place] # (Auto) 0.5 Eos # (Auto) 0.0 Baso # (Auto) 0.0 Nucleated RBC % (a uto) 0 Nucleated RBCs # 0.0 Sodium Potassium Chloride Carbon Dioxide Anion Gap BUN Creatinine GFR Calculation Glucose Estimat Average Gl ucose Hemoglobin A1c Calculated Osmolal ity Lactic Acid Lactate Calcium Phosphorus Magnesium Total Bilirubin AST ALT Alkaline Phosphata se Total Protein Albumin Globulin Lipase TSH Urine Color Urine Appearance Urine pH Ur Specific Gravit y Urine Protein Urine Glucose (UA) Urine Ketones Urine Blood Urine Nitrate Urine Bilirubin Urine Urobilinogen Ur Leukocyte Melissa ase Urine RBC Urine WBC Ur Squamous Epith Cells Amorphous Sediment Urine Bacteria Urine Mucus Vitals: Last Vital Signs Temp 98.0 F 06/30/20 08:00 Pulse 59 L 06/30/20 08:00 Resp 17 06/30/20 08:00 BP 143/80 06/30/20 08:00 Pulse Ox 93 06/30/20 08:00 Discharge Plan Discharge Patient Disposition: Home Condition: Stable Prescriptions: New Ultram 50 mg tablet 50 mg PO Q12H PRN (Reason: pain) 7 Days Qty: 14 RF: 0 docusate sodium [Colace] 100 mg capsule 100 mg PO BID 30 Days Qty: 60 RF: 0 polyethylene glycol 3350 [Miralax] 17 gram/dose powder 17 g PO DAILY PRN (Reason: constipation) 30 Days Qty: 238 RF: 0 Continued lisinopril 10 mg tablet 10 mg PO DAILY@09 RF: 0 mirtazapine 45 mg tablet 45 mg PO BEDTIME@21 RF: 0 albuterol sulfate 90 mcg/actuation HFA aerosol inhaler 1 puff INHALATION QID PRN (Reason: Shortness Of Breath) RF: 0 cholecalciferol (vitamin D3) 1,250 mcg (50,000 unit) capsule 1,250 mcg PO Q7D RF: 0 Anoro Ellipta 62.5-25 mcg/actuation blister with device 1 ea INHALATION DAILY@21 RF: 0 Discharge Orders: Discharge Order (Routine); Ordered 06/30/20 Ordered By: Km Umana Referrals: Chun Sutherland MD [Physician] - 1 month Fabricio Murillo [Primary Care Provider] - Discharge Diet: As Directed Discharge Activity: Resume usual activity Patient Instructions: Bowel Obstruction (DC) Discharge Attestations Time Spent in Discharge Care*: less than 30 min Quality Metrics Clinical Quality Measures During this hospital stay, did patient experience: None Coding Level of Care Code Acute Occupational Therapy Assistant for Chg Fwd Diagnoses Partial small bowel obstruction K56.600
[2020-06-30 11:09] VITALS: BP 111/68; PULSE 54; RESP 16; TEMP 36.8; O2SAT 92
[2020-06-30 15:43] VITALS: BP 124/65; PULSE 48; RESP 16; TEMP 37; O2SAT 96
--- NOTE | 2020-06-30 16:28 | PC.NURSE ---
Discharge instructions given to patient all questions answered. Patient discharged in stable condition, in the care of her .
[2020-06-30 16:31] VITALS: BP 124/65; PULSE 48; RESP 16; TEMP 37; O2SAT 96
--- NOTE | 2020-07-01 16:39 | PC.RESP ---
Smoking Cessation information sent to patient.
== END 2020-06-30 16:31 | disposition home or self-care (01) | DRG 390 ==
LOC: ER 12:56 → MEDSURG 15:00
PROVIDERS: Admitting Provider Surgery; Emergency Provider Family Medicine; PCP Family Medicine; Visit Provider Family Medicine
DX: K56.51 Intestinal adhesions [bands], with partial obstruction (principal); I10 Essential (primary) hypertension; J44.9 Chronic obstructive pulmonary disease, unspecified; F17.210 Nicotine dependence, cigarettes, uncomplicated; Z99.81 Dependence on supplemental oxygen; E78.5 Hyperlipidemia, unspecified; Z90.49 Acquired absence of other specified parts of digestive tract
CPT/HCPCS: 12345; 74177; 80053; 81001; 83036; 83605; 83690; 83735; 84100; 84443; 85025; 96372; 96375; 99283; J1644; J2270; J2405; J3490; J7030; Q9967

== ENCOUNTER 2022-04-28 13:17 | Outpatient (CLI) | payer MEDICARE, SELFPAY ==
--- NOTE | 2022-04-28 13:42 | MM_ITS ---
WS: [id number] BILATERAL 3D TOMOSYNTHESIS DIGITAL SCREENING MAMMOGRAPHY WITH CAD CLINICAL INFORMATION: SCREE HISTORY: Screening mammogram. No current complaints. COMPARISON: April 15, 2021 TECHNIQUE: Bilateral CC and MLO views. FINDINGS: Scattered fibroglandular densities bilaterally. No suspicious focal mass, asymmetry, calcifications, or architectural distortion. No evidence of malignancy. A few tiny punctate calcifications. MM/[place] [id number] IMPRESSION: BI-RADS: 2-Benign FOLLOW UP: 1 Year Follow-up Recommend return to annual screening mammography.
== END 2022-04-28 13:18 | disposition home or self-care (01) ==
PROVIDERS: PCP Family Medicine; Visit Provider Family Medicine
DX: Z12.31 Encounter for screening mammogram for malignant neoplasm of breast (principal)
CPT/HCPCS: 77063; 77067

== ENCOUNTER 2023-09-19 17:49 | Emergency (ER) | payer MEDICARE, MEDICAID, SELFPAY ==
--- NOTE | 2023-09-19 17:52 | ECG_ITS ---
[facility] Test Date: 2023-09-19 Pat Name: Ronit Winn Department: Room: Gender: Female Hse Coordinator: : 1955 Requested By: Cheyenne Torres Order Number: [id number] Jus MD: Teja Velarde M.D. Measurements Intervals [place] Rate: 54 P: 35 IA: 126 QRS: 56 QRSD: 89 T: 43 QT: 426 QTc: 406 Interpretive Statements SINUS BRADYCARDIA Compared to ECG 04/07/2019 09:39:50 Sinus rhythm no longer present T-wave abnormality no longer present Electronically Signed On 09-19-2023 18:31:23 [employer] TECH by Teja Velarde M.D. [id number]
--- NOTE | 2023-09-19 17:54 | XRR_ITS ---
PROCEDURE INFORMATION: Exam: XR Chest Exam date and time: 09/19/2023 6:09 PM Age: 68 years old Clinical indication: Shortness of breath; Additional info: SOB TECHNIQUE: Imaging protocol: Radiologic exam of the chest. Views: 1 view. COMPARISON: CR XR chest 1V [id number] 04/07/2019 9:37 AM FINDINGS: Lungs: Subtle opacities in the lung bases, [id number]-right. Pleural spaces: Unremarkable. No pleural effusion. No pneumothorax. Heart/Mediastinum: Unremarkable. No cardiomegaly. Bones/joints: Unremarkable. XR/XR chest 1V portable [id number] IMPRESSION: Subtle opacities in the lung bases, [id number]-right.
[2023-09-19 17:58] VITALS: BP 178/81; PULSE 59; RESP 16; TEMP 36.7; O2SAT 94; BMI 40.0
--- NOTE | 2023-09-19 19:19 | ED_ITS ---
HPI - Back Pain/Injury General: Chief Complaint: Back Pain/Injury Stated Complaint: sob, back pain Time Seen by Provider: 09/19/23 19:04 History of Present Illness: Patient presents to the ER with complaints of worsening shortness of breath. Patient was seen at urgent care on for COPD exacerbation and bronchitis she was placed on doxycycline and prednisone. Since then the color of her sputum has cleared up but the coughing is still there since she hurts in the middle of her back when she coughs. She think she may have coughed the disc out of place. Patient is also still getting short of breath with exertion. Patient finished her steroids yesterday. Review of Systems General: Reports: 10 or more systems reviewed and unremarkable except in HPI and below PFSH ED PFSH: Medical History Psychiatric care COPD (chronic obstructive pulmonary disease) Hyperlipidemia Hypertension Diverticulitis Surgical History H/O foot surgery S/P cholecystectomy H/O: hysterectomy S/P colon resection Family History Father CAD (coronary artery disease) Cancer Lung disease Lung cancer Mother Cancer Cervical cancer Hypertension Social History Smoking and tobacco/nicotine status: current every day tobacco/nicotine user Alcohol intake: never Physical Exam Const: COMMON NORMALS: no acute distress, average body habitus, patient oriented x3, no limitations, healthy appearing, alert and well nourished HENMT: COMMON NORMALS: normocephalic, atraumatic, hearing grossly normal bilaterally, external ears normal, Normal external nose present, moist oral mucous membranes and oropharynx normal HEAD & SCALP: normocephalic and atraumatic NOSE: Normal external nose present EXTERNAL EAR: Yes external ears normal Neck/C-Spine: COMMON NORMALS: no JVD Chest: COMMONS NORMALS: normal inspection of the chest and normal palpation of entire chest wall Resp: COMMON NORMALS: normal respiratory effort, No retractions, No use of accessory muscles and clear to auscultation bilaterally AUSCULTATION: clear to auscultation bilaterally Cardio: COMMON NORMALS: no JVD, regular rate, regular rhythm, S1 normal heart sound present, S2 normal heart sound present, No gallops present (Cardio), No clicks present (Cardio), No murmurs present (Cardio) and No rub (Cardio) RATE: regular rate RHYTHM: regular rhythm HEART SOUNDS: S1 normal heart sound present and S2 normal heart sound present GI: COMMON NORMALS: Normal to inspection, nondistended, normoactive bowel sounds present, Soft to palpation, non-tender, No hepatosplenomegaly present and no masses PALPATION: Yes Soft to palpation and Yes No hepatosplenomegaly present Neuro: COMMON NORMALS: patient oriented x3 SENSORIUM/ORIENTATION: Yes alert Course Vital Signs: Vital signs: Vital Signs Temperature 98.1 F 09/19/23 17:58 Pulse Rate 50 L 09/19/23 21:54 Respiratory Rate 18 09/19/23 21:54 Blood Pressure 156/80 09/19/23 21:54 Pulse Oximetry 93 09/19/23 21:54 Oxygen Delivery Me thod Nasal Cannula 09/19/23 20:47 Oxygen Flow Rate 2 09/19/23 20:29 MDM - Back Pain/Injury Medical Decision Making Patient had chest x-ray done that showed subtle opacities in the left lung bases, patient was weaned down to her 2 L of oxygen per nasal cannula which is what she is home on. Patient still currently on the doxycycline and finish up the prednisone. Patient was given 1 dose of Decadron, 1 DuoNeb, and 0.1 mg of clonidine. Patient be discharged home and is to continue the antibiotics and f ollow-up with her PCP within the next 7 days. Labs Radiology Impressions Chest X-Ray 09/19/23 17:54 IMPRESSION: Subtle opacities in the lung bases, [id number]-right. All radiology interpretation(s) finalized by discharge Discharge Plan Discharge Patient Disposition: Home Clinical Impression: Bronchitis COPD (chronic obstructive pulmonary disease) Qualifiers: COPD type: COPD with acute exacerbation Qualified Code(s): J44.1 - Chronic obstructive pulmonary disease with (acute) exacerbation Condition: Stable Prescriptions: New benzonatate 100 mg capsule 100 mg PO TID PRN (Reason: cough) Qty: 30 0RF No Action fluoxetine [Prozac] 40 mg capsule 40 mg PO DAILY Qty: 30 2RF mirtazapine 45 mg tablet 45 mg PO BEDTIME@21 Qty: 30 2RF trazodone 100 mg tablet 100 mg PO .HS Qty: 30 2RF Trelegy Ellipta 100-62.5-25 mcg blister with device 1 inh inhalation DAILY pravastatin 40 mg tablet 40 mg PO DAILY varenicline 1 mg tablet 1 mg PO BID Qty: 60 2RF nicotine (polacrilex) [Nicorette] 4 mg gum 4 mg buccal Q1H Qty: 110 2RF doxycycline hyclate 100 mg capsule 100 mg PO BID 7 Days Qty: 14 0RF prednisone 20 mg tablet 20 mg PO BID 5 Days Qty: 10 0RF lisinopril 10 mg tablet 10 mg PO DAILY@09 albuterol sulfate 90 mcg/actuation HFA aerosol inhaler 1 puff INHALATION QID PRN (Reason: Shortness Of Breath) cholecalciferol (vitamin D3) 1,250 mcg (50,000 unit) capsule 1,250 mcg PO Q7D Rx Instructions: (on mondays) Anoro Ellipta 62.5-25 mcg/actuation blister with device 1 ea INHALATION DAILY@21 Discharge Orders: Discharge ED (Routine); Ordered 09/19/23 Ordered By: Rigoberto Jordan Referrals: Fabricio Murillo [Primary Care Provider] - 1 week Patient Instructions: Bronchitis (Acute) - Adult, COPD (Chronic Obstructive Pulmonary Disease) (ED) Activity Restrictions/Additional Instructions: You will be placed on a prescription cough medicine. He will be sent to the pharmacy. Please take it as directed. Please continue your antibiotics as previously prescribed. Please follow-up with your family practice physician for further evaluation and treatment as needed. Coding Level of Care Code ED Due Diligence Coordinator for Ron Corona
[2023-09-19] MEDS: dexamethasone 10 mg/mL INJ IM (19:46)
[2023-09-19 19:47] VITALS: BP 225/64; PULSE 55; RESP 22; O2SAT 96
[2023-09-19] MEDS: ipratropium-albuterol 3 mL Neb INHALATION (20:27)
[2023-09-19 20:29] VITALS: PULSE 52; RESP 16; O2SAT 95
[2023-09-19 20:47] VITALS: BP 180/94; PULSE 58; RESP 18; O2SAT 94
[2023-09-19] MEDS: cloNIDine 0.1 mg Tablet 0.100000000000000006 MG PO (20:47)
[2023-09-19 21:54] VITALS: BP 156/80; PULSE 50; RESP 18; O2SAT 93
== END 2023-09-19 21:52 | disposition home or self-care (01) ==
PROVIDERS: Emergency Provider Emergency Medicine; PCP Family Medicine
DX: J44.1 Chronic obstructive pulmonary disease with (acute) exacerbation (principal); Z72.0 Tobacco use; E78.5 Hyperlipidemia, unspecified; I10 Essential (primary) hypertension
CPT/HCPCS: 71045; 93005; 94640; 96372; 99284; J1100

== ENCOUNTER → 2024-07-18 09:17 | Outpatient (BNVA) | payer MEDICARE, SELFPAY | PROVIDERS: PCP Family Medicine; Visit Provider Nurse Practitioner Psychiatric/Mental Health | DX: Z79.899 Other long term (current) drug therapy (principal) | CPT/HCPCS: 80061; 83036 ==

== ENCOUNTER 2024-10-01 15:49 | Outpatient (CLI) | payer MEDICARE, MEDICAID, SELFPAY ==
[2024-07-22 11:45] VITALS: BP 184/87; BMI 40.8
--- NOTE | 2024-10-01 15:58 | MR_ITS ---
WS: [id number] MRI HEAD WITH CONTRAST WITH ATTENTION TO THE INTERNAL AUDITORY CANALS TECHNIQUE: Sagittal T1, T2 axial, T2 axial flair, axial susceptibility weighted imaging, axial diffusion weighted images, and coronal T2 images were obtained. Pre and post T1 axial and post T1 coronal images. ADC and FSPGR images. Post gadolinium images with attention to the internal auditory canals. Axial fiesta imaging. CLINICAL INFORMATION: BILATERAL HEARING LOSS, SENSORINEURAL COMPARISON: None. FINDINGS: Some images degraded by motion No evidence of restricted diffusion to suggest acute ischemia. Ventricular system and basal cisterns are patent. Moderate small vessel changes. Mild parenchymal volume loss. No hemosiderin. Proximal 7th and 8th cranial nerves appear normal. No evidence of enhancing IAC or CP angle mass. Normal trigeminal nerve root entry zones. No abnormal gadolinium enhancement. Normal dural venous sinuses. MR/MR iac's wo/w con* [id number] IMPRESSION: Some images degraded by motion 1. No evidence of restricted diffusion to suggest acute ischemia. 2. No evidence of enhancing IAC or CP angle mass. Normal trigeminal nerve root entry zones. 3. Mastoid air cells are well aerated. Paranasal sinuses are well aerated. 4. Moderate small vessel changes with mild parenchymal volume loss. 5. No hemosiderin on the susceptibly weighted images.
[2024-10-01] MEDS: gadobenate dimeglumine 20 mL vial IV (16:38)
== END 2024-10-01 15:50 | disposition home or self-care (01) ==
LOC: RAD 15:51
PROVIDERS: PCP Family Medicine; Visit Provider Specialist
DX: H90.3 Sensorineural hearing loss, bilateral (principal); R93.0 Abnormal findings on diagnostic imaging of skull and head, not elsewhere classified; G31.89 Other specified degenerative diseases of nervous system
CPT/HCPCS: 70553